=== PATIENT | female | born 1960 | race Caucasian/White ===

== ENCOUNTER 2017-12-01 10:51 | Outpatient (CLI) | payer OTHER | END 2017-12-01 11:04 | disposition home or self-care (01) | LOC: SONOGRAMA 10:51 | DX: R31.21 Asymptomatic microscopic hematuria (principal) ==

== ENCOUNTER 2017-12-03 10:04 | Outpatient (CLI) | payer OTHER | END 2017-12-03 10:15 | disposition home or self-care (01) | LOC: MAMO-SONO 10:04 | DX: Z12.31 Encounter for screening mammogram for malignant neoplasm of breast (principal); Z01.419 Encounter for gynecological examination (general) (routine) without abnormal findings; R32 Unspecified urinary incontinence; R35.0 Frequency of micturition; N39.41 Urge incontinence; R31.29 Other microscopic hematuria; C50.911 Malignant neoplasm of unspecified site of right female breast; C50.912 Malignant neoplasm of unspecified site of left female breast; Z12.4 Encounter for screening for malignant neoplasm of cervix; N81.10 Cystocele, unspecified; N81.6 Rectocele; N18.2 Chronic kidney disease, stage 2 (mild) ==

== ENCOUNTER 2018-04-24 10:04 | Outpatient (CLI) | payer OTHER | END 2018-04-24 10:36 | disposition home or self-care (01) | LOC: SONOGRAMA 10:04 | DX: E03.8 Other specified hypothyroidism (principal) ==

== ENCOUNTER 2019-01-18 13:36 | Outpatient (CLI) | payer OTHER | END 2019-01-18 14:37 | disposition home or self-care (01) | LOC: LAB 13:36 | DX: C54.1 Malignant neoplasm of endometrium (principal) ==

== ENCOUNTER → 2019-01-20 | Outpatient (CLI) | payer OTHER | END | disposition home or self-care (01) | LOC: TOM 10:01 | DX: C54.1 Malignant neoplasm of endometrium (principal) ==

== ENCOUNTER 2019-01-27 08:50 | Outpatient (CLI) | payer OTHER | END 2019-01-27 08:52 | disposition home or self-care (01) | LOC: MRI 08:50 | DX: C54.1 Malignant neoplasm of endometrium (principal) | CPT/HCPCS: 72196 ==

== ENCOUNTER → 2019-02-05 | Outpatient (CLI) | payer OTHER | END | disposition home or self-care (01) | LOC: RAD 09:58 | DX: D64.89 Other specified anemias (principal); N39.0 Urinary tract infection, site not specified; R79.1 Abnormal coagulation profile; C54.1 Malignant neoplasm of endometrium; Z01.818 Encounter for other preprocedural examination ==

== ENCOUNTER 2019-06-15 14:39 | Outpatient (CLI) | payer OTHER | END 2019-06-15 14:44 | disposition home or self-care (01) | LOC: RAD 14:39 | DX: M54.2 Cervicalgia (principal) ==

== ENCOUNTER 2019-07-05 11:18 | Outpatient (CLI) | payer OTHER | END 2019-07-05 11:35 | disposition home or self-care (01) | LOC: NUCLEAR 11:18 | DX: M81.0 Age-related osteoporosis without current pathological fracture (principal) ==

== ENCOUNTER 2020-02-07 10:44 | Outpatient (CLI) | payer OTHER | END 2020-02-07 11:00 | disposition home or self-care (01) | LOC: MAMO-SONO 10:44 | PROVIDERS: ATTEND Specialist | DX: Z12.31 Encounter for screening mammogram for malignant neoplasm of breast (principal); N60.11 Diffuse cystic mastopathy of right breast; N60.12 Diffuse cystic mastopathy of left breast ==

== ENCOUNTER 2020-04-17 13:50 | Outpatient (CLI) | payer OTHER | END 2020-04-17 13:57 | disposition home or self-care (01) | LOC: RAD 13:50 | DX: I10 Essential (primary) hypertension (principal) ==

== ENCOUNTER 2020-11-01 10:58 | Outpatient (CLI) | payer OTHER | END 2020-11-01 11:07 | disposition home or self-care (01) | LOC: SONOGRAMA 10:58 → MAMO-SONO 11:00 → SONOGRAMA 11:07 | PROVIDERS: ATTEND Internal Medicine Endocrinology, Diabetes & Metabolism | DX: E04.2 Nontoxic multinodular goiter (principal); E03.8 Other specified hypothyroidism ==

== ENCOUNTER → 2021-02-02 | Outpatient (CLI) | payer OTHER | END | disposition home or self-care (01) | LOC: PPH VACUNA 08:00 | PROVIDERS: ATTEND Emergency Medicine Pediatric Emergency Medicine | DX: Z23 Encounter for immunization (principal) ==

== ENCOUNTER 2021-07-24 10:41 | Outpatient (CLI) | payer OTHER | END 2021-07-24 11:02 | disposition home or self-care (01) | LOC: MAMO-SONO 10:41 | PROVIDERS: ATTEND Obstetrics & Gynecology Gynecologic Oncology | DX: Z12.31 Encounter for screening mammogram for malignant neoplasm of breast (principal) ==

== ENCOUNTER 2022-07-31 09:38 | Outpatient (CLI) | payer OTHER | END 2022-07-31 09:55 | disposition home or self-care (01) | LOC: SONOGRAMA 09:38 | PROVIDERS: ATTEND Obstetrics & Gynecology Gynecologic Oncology | DX: Z12.31 Encounter for screening mammogram for malignant neoplasm of breast (principal) ==

== ENCOUNTER 2022-08-19 12:12 | Outpatient (CLI) | payer OTHER | END 2022-08-19 12:27 | disposition home or self-care (01) | LOC: RAD 12:12 | PROVIDERS: ATTEND Obstetrics & Gynecology Gynecologic Oncology | DX: C54.1 Malignant neoplasm of endometrium (principal) ==

== ENCOUNTER 2024-02-25 11:43 | Outpatient (CLI) | payer OTHER | END 2024-02-25 11:50 | disposition home or self-care (01) | LOC: RAD 11:43 | DX: M54.12 Radiculopathy, cervical region (principal) ==

== ENCOUNTER 2024-04-15 15:07 | Outpatient (CLI) | payer OTHER | END 2024-04-15 15:14 | disposition home or self-care (01) | LOC: RAD 15:07 | PROVIDERS: ATTEND Neurological Surgery | DX: M48.062 Spinal stenosis, lumbar region with neurogenic claudication (principal) ==

== ENCOUNTER 2024-04-29 13:20 | Outpatient (CLI) | payer OTHER | END 2024-04-29 13:23 | disposition home or self-care (01) | LOC: NUCLEAR 13:20 | PROVIDERS: ATTEND Neurological Surgery | DX: M81.0 Age-related osteoporosis without current pathological fracture (principal) ==

== ENCOUNTER 2025-02-21 10:16 | Outpatient (CLI) | payer OTHER | END 2025-02-21 10:25 | disposition home or self-care (01) | LOC: TOM 10:16 | PROVIDERS: ATTEND Physical Medicine & Rehabilitation | DX: S92.402A Displaced unspecified fracture of left great toe, initial encounter for closed fracture (principal); S86.312A Strain of muscle(s) and tendon(s) of peroneal muscle group at lower leg level, left leg, initial encounter; M48.02 Spinal stenosis, cervical region ==

== ENCOUNTER 2025-02-28 11:57 | Outpatient (CLI) | payer OTHER | END 2025-02-28 12:02 | disposition home or self-care (01) | LOC: RAD 11:57 | PROVIDERS: ATTEND Physical Medicine & Rehabilitation | DX: M25.572 Pain in left ankle and joints of left foot (principal) ==